=== PATIENT | female | born 1970 | race Caucasian/White ===

== ENCOUNTER → 2018-02-13 | Outpatient (CLI) | payer BC | LOC: M EKG 15:20 | DX: D64.9 Anemia, unspecified (principal); R53.83 Other fatigue; E03.9 Hypothyroidism, unspecified; R92.8 Other abnormal and inconclusive findings on diagnostic imaging of breast; N63.21 Unspecified lump in the left breast, upper outer quadrant | CPT/HCPCS: 71046 ==

== ENCOUNTER → 2018-12-09 | Outpatient (CLI) | payer BC ==
[2018-12-09 15:28] LABS: CHLAMYDIA DNA AMPLIFICATION NEGATIVE (NEGATIVE); GC DNA AMPLIFICATION NEGATIVE (NEGATIVE)
[2018-12-11 12:37] LABS: HIV 1&2 SCREEN CENTAUR NEGATIVE (NEGATIVE)
[2018-12-13 00:11] LABS: HSV IgM TYPES 1&2 <0.91 Ratio (0.00-0.90)
== END ==
LOC: M WUC 10:39
PROVIDERS: ATTEND Physician Assistant
DX: Z20.2 Contact with and (suspected) exposure to infections with a predominantly sexual mode of transmission (principal); R30.0 Dysuria

== ENCOUNTER → 2019-07-10 | Outpatient (CLI) | payer BC ==
[2019-07-10 08:38] LABS: HEMATOCRIT 41.4 % (36.0-47.0); MEAN CORPUSCULAR HEMOGLOBIN 30.2 pg (27.0-33.0); MEAN CORPUSCULAR HGB CONC 33.8 g/dl (32.0-36.5); MEAN CORPUSCULAR VOLUME 89.2 fl (80.0-96.0); PLATELET COUNT, AUTOMATED 308 10^3/uL (150-450); RED BLOOD COUNT 4.64 10^6/uL (4.00-5.40); WHITE BLOOD COUNT 9.1 10^3/uL (4.0-10.0)
[2019-07-10 09:16] LABS: ALBUMIN 3.8 GM/DL (3.2-5.2); BILIRUBIN,TOTAL 0.3 MG/DL (0.2-1.0); CALCIUM LEVEL 9.3 MG/DL (8.5-10.1); CHOLESTEROL RISK RATIO 3.557 (<5); CREATININE FOR GFR 1.07 MG/DL (0.55-1.30); GLOMERULAR FILTRATION RATE 57.8 (>51); PERCENT SATURATION 29.8 % (13.2-45.0); POTASSIUM SERUM 4.5 MEQ/L (3.5-5.1); THYROID STIMULATING HORMONE 2.92 uIU/ML (0.358-3.740)
[2019-07-10 09:19] LABS: TOTAL 25(OH) VITAMIN D 31.3 NG/ML (30.0-100.0)
[2019-07-10 11:23] LABS: HEMOGLOBIN A1c 5.2 %
== END ==
LOC: M LAB 07:48
PROVIDERS: ATTEND Family Medicine
DX: D64.9 Anemia, unspecified (principal)

== ENCOUNTER → 2021-04-25 | Outpatient (CLI) | payer BC ==
[2021-04-25 09:46] LABS: HEMATOCRIT 42.1 % (36.0-47.0); HEMOGLOBIN 13.6 g/dl (12.0-15.5); MEAN CORPUSCULAR HEMOGLOBIN 29.8 pg (27.0-33.0); MEAN CORPUSCULAR HGB CONC 32.3 g/dl (32.0-36.5); MEAN CORPUSCULAR VOLUME 92.3 fl (80.0-96.0); PLATELET COUNT, AUTOMATED 286 10^3/uL (150-450); RED BLOOD COUNT 4.56 10^6/uL (4.00-5.40); WHITE BLOOD COUNT 5.8 10^3/uL (4.0-10.0)
[2021-04-25 10:09] LABS: HEMOGLOBIN A1c 5.2 %
[2021-04-25 10:18] LABS: ALBUMIN 3.7 GM/DL (3.2-5.2); ALT/SGPT 28 U/L (12-78); BILIRUBIN,TOTAL 0.4 MG/DL (0.2-1.0); BLOOD UREA NITROGEN 14 MG/DL (7-18); CALCIUM LEVEL 8.9 MG/DL (8.5-10.1); CARBON DIOXIDE LEVEL 26 MEQ/L (21-32); CHLORIDE LEVEL 110 MEQ/L (98-107); CHOLESTEROL LEVEL 232 MG/DL (<200); CHOLESTEROL RISK RATIO 3.222 (<5); CREATININE FOR GFR 0.96 MG/DL (0.55-1.30); GLOMERULAR FILTRATION RATE > 60.0 (>51); GLUCOSE, FASTING 89 MG/DL (70-100); HDL CHOLESTEROL 72 MG/DL (>40); LDL CHOLESTEROL 146 MG/DL (<100); NON-HDL-C 160 MG/DL; POTASSIUM SERUM 4.4 MEQ/L (3.5-5.1); SODIUM LEVEL 135 MEQ/L (136-145); TRIGLYCERIDES LEVEL 71 MG/DL (<150)
[2021-04-27 09:43] LABS: LUTEINIZING HORMONE 5.1 mIU/mL; TOTAL 25(OH) VITAMIN D 62.4 NG/ML (30.0-100.0)
== END ==
LOC: M LAB 08:06
PROVIDERS: ATTEND Family Medicine
DX: D64.9 Anemia, unspecified (principal); R53.83 Other fatigue

== ENCOUNTER 2022-12-28 08:10 | Emergency (ER) | payer BC ==
[~2022-12-28] VITALS: Ht 172.7 cm; Wt 92.7 kg
[2022-12-28 08:36] LABS: BASO % 0.4 % (0.0-1.0); EOS # 0.1 10^3/uL (0.0-0.5); HEMOGLOBIN 13.7 g/dl (12.0-15.5); LYMPH # 2.1 10^3/uL (1.5-5.0); LYMPH % 29.4 % (24.0-44.0); MEAN CORPUSCULAR HGB CONC 32.6 g/dl (32.0-36.5); MEAN CORPUSCULAR VOLUME 91.9 fl (80.0-96.0); MONO # 0.8 10^3/uL (0.0-0.8); NEUTROPHILS % 56.9 % (36.0-66.0); PLATELET COUNT, AUTOMATED 274 10^3/uL (150-450); RED BLOOD COUNT 4.57 10^6/uL (4.00-5.40)
[2022-12-28 09:09] LABS: CALCIUM LEVEL 8.9 MG/DL (8.5-10.1); CREATININE FOR GFR 1.16 MG/DL (0.55-1.30); GLOMERULAR FILTRATION RATE 51.8 (>51); POTASSIUM SERUM 4.4 MMOL/L (3.5-5.1)
[2022-12-28] MEDS ORDERED: LIDOCAINE 5% (LIDODERM) PATCH TD ONE (09:25)
[2022-12-28] MEDS ORDERED: ASPE4PAD TOP (10:51)
[2022-12-28] MEDS ORDERED: METH-1165 PO (10:51)
[2022-12-28 11:03] VITALS: BP 123/82
== END 2022-12-28 11:11 | disposition home or self-care (01) ==
LOC: M ED 08:10
DX: M54.50 Low back pain, unspecified (principal); N83.201 Unspecified ovarian cyst, right side; Z90.5 Acquired absence of kidney

== ENCOUNTER → 2023-01-08 | Outpatient (CLI) | payer BC ==
[~2023-01-08] MED LIST: ASPE4PAD TOP; METH-1165 PO
[2023-01-08 09:29] LABS: HEMATOCRIT 42.7 % (36.0-47.0); HEMOGLOBIN 13.9 g/dl (12.0-15.5); MEAN CORPUSCULAR VOLUME 91.4 fl (80.0-96.0); RED BLOOD COUNT 4.67 10^6/uL (4.00-5.40); WHITE BLOOD COUNT 5.7 10^3/uL (4.0-10.0)
[2023-01-08 09:30] LABS: MEAN CORPUSCULAR HEMOGLOBIN 29.8 pg (27.0-33.0); MEAN CORPUSCULAR HGB CONC 32.6 g/dl (32.0-36.5); PLATELET COUNT, AUTOMATED 303 10^3/uL (150-450)
[2023-01-08 09:57] LABS: HEMOGLOBIN A1c 5.3 % (4.0-6.0)
[2023-01-08 09:58] LABS: ALBUMIN 3.7 G/DL (3.2-5.2); ALKALINE PHOSPHATASE 60 U/L (46-116); ALT/SGPT 24 U/L (7.0-40); AST/SGOT 26 U/L (<34); BILIRUBIN,TOTAL 0.6 MG/DL (0.3-1.2); BLOOD UREA NITROGEN 24 MG/DL (9-23); CALCIUM LEVEL 9.5 MG/DL (8.5-10.1); CARBON DIOXIDE LEVEL 27 MMOL/L (20-31); CHLORIDE LEVEL 107 MMOL/L (98-107); CHOLESTEROL LEVEL 200 MG/DL (<200); CHOLESTEROL RISK RATIO 2.73 (<5); CREATININE FOR GFR 1.02 MG/DL (0.55-1.30); GLOMERULAR FILTRATION RATE > 60.0 (>51); GLUCOSE, FASTING 92 MG/DL (60-100); HDL CHOLESTEROL 73.1 MG/DL (>40); LDL CHOLESTEROL 114.5 MG/DL (<100); NON-HDL-C 126.9 MG/DL; POTASSIUM SERUM 4.5 MMOL/L (3.5-5.1); SODIUM LEVEL 141 MMOL/L (136-145); TOTAL PROTEIN 6.9 G/DL (5.7-8.2); TRIGLYCERIDES LEVEL 62 MG/DL (<150)
[2023-01-08 09:59] LABS: ESTRADIOL < 19.0 PG/ML; THYROID STIMULATING HORMONE 2.629 uIU/ML (0.55-4.78); TOTAL 25(OH) VITAMIN D 40.4 NG/ML (20.0-100.0)
[2023-01-08 10:00] LABS: FOLLICLE STIMULATING HORMONE 103.4 mIU/ML; LUTEINIZING HORMONE 62.5 mIU/ML
== END ==
LOC: M RAD 08:24
PROVIDERS: ATTEND Family Medicine
DX: I10 Essential (primary) hypertension (principal); R53.83 Other fatigue; E03.9 Hypothyroidism, unspecified

== ENCOUNTER → 2023-09-15 | Outpatient (CLI) | payer BC ==
[2023-09-15 07:16] LABS: HEMATOCRIT 38.6 % (36.0-47.0); HEMOGLOBIN 12.9 g/dl (12.0-15.5); MEAN CORPUSCULAR HEMOGLOBIN 30.1 pg (27.0-33.0); MEAN CORPUSCULAR HGB CONC 33.4 g/dl (32.0-36.5); MEAN CORPUSCULAR VOLUME 90.2 fl (80.0-96.0); PLATELET COUNT, AUTOMATED 270 10^3/uL (150-450); RED BLOOD COUNT 4.28 10^6/uL (4.00-5.40); WHITE BLOOD COUNT 5.8 10^3/uL (4.0-10.0)
[2023-09-15 07:49] LABS: ALBUMIN 3.4 G/DL (3.2-5.2); ALKALINE PHOSPHATASE 58 U/L (46-116); ALT/SGPT 21 U/L (7.0-40); AST/SGOT 21 U/L (<34); BILIRUBIN,TOTAL 0.4 MG/DL (0.3-1.2); BLOOD UREA NITROGEN 22 MG/DL (9-23); CALCIUM LEVEL 9.1 MG/DL (8.5-10.1); CARBON DIOXIDE LEVEL 26 MMOL/L (20-31); CHLORIDE LEVEL 107 MMOL/L (98-107); CHOLESTEROL LEVEL 206 MG/DL (<200); CHOLESTEROL RISK RATIO 3.37 (<5); CREATININE FOR GFR 0.97 MG/DL (0.55-1.30); GLOMERULAR FILTRATION RATE > 60.0 (>51); GLUCOSE, FASTING 93 MG/DL (60-100); LDL CHOLESTEROL 128.2 MG/DL (<100); POTASSIUM SERUM 4.2 MMOL/L (3.5-5.1); SODIUM LEVEL 140 MMOL/L (136-145); THYROID STIMULATING HORMONE 2.367 uIU/ML (0.55-4.78); TOTAL 25(OH) VITAMIN D 38.1 NG/ML (20.0-100.0); TOTAL PROTEIN 6.5 G/DL (5.7-8.2); TRIGLYCERIDES LEVEL 84 MG/DL (<150)
[2023-09-15 09:34] LABS: HEMOGLOBIN A1c 5.2 % (4.0-6.0)
== END ==
LOC: M RAD 06:19
PROVIDERS: ATTEND Family Medicine
DX: I10 Essential (primary) hypertension (principal); R53.83 Other fatigue

== ENCOUNTER → 2023-12-01 | Outpatient (CLI) | payer BC ==
[2023-12-01 12:12] LABS: FREE T4 1.31 NG/DL (0.89-1.76); PROGESTERONE 0.21 NG/ML
[2023-12-01 12:13] LABS: ESTRADIOL < 19.0 PG/ML; LUTEINIZING HORMONE 42.4 mIU/ML
[2023-12-01 12:14] LABS: CORTISOL AM 6.7 UG/DL (4.3-22.4)
== END ==
LOC: M PLALAB 08:02
PROVIDERS: ATTEND Obstetrics & Gynecology
DX: N95.1 Menopausal and female climacteric states (principal)

== ENCOUNTER → 2024-01-18 | Outpatient (CLI) | payer BC ==
[2024-01-18 11:10] LABS: FOLLICLE STIMULATING HORMONE 53.1 mIU/ML
[2024-01-18 11:11] LABS: LUTEINIZING HORMONE 31.5 mIU/ML
[2024-01-18 11:12] LABS: ESTRADIOL 131.3 PG/ML
[2024-01-18 11:15] LABS: PROGESTERONE 3.89 NG/ML
[2024-01-19 12:18] LABS: TESTOSTERONE FREE (DIRECT) 2.8 pg/mL (0.0-4.2)
== END ==
LOC: M PLALAB 08:06
PROVIDERS: ATTEND Obstetrics & Gynecology
DX: E34.9 Endocrine disorder, unspecified (principal); N95.1 Menopausal and female climacteric states; P52.0 Intraventricular (nontraumatic) hemorrhage, grade 1, of newborn

== ENCOUNTER → 2024-03-01 | Outpatient (CLI) | payer BC | LOC: M PLAIMG 14:25 | PROVIDERS: ATTEND Family Medicine | DX: M25.522 Pain in left elbow (principal) ==

== ENCOUNTER → 2024-03-12 | Outpatient (CLI) | payer BC ==
[2024-03-12 13:42] LABS: ESTRADIOL 37.3 PG/ML
[2024-03-12 13:43] LABS: FOLLICLE STIMULATING HORMONE 61.1 mIU/ML; LUTEINIZING HORMONE 41.5 mIU/ML
[2024-03-12 13:44] LABS: PROGESTERONE 4.34 NG/ML
[2024-03-13 16:08] LABS: TESTOSTERONE FREE (DIRECT) 1.2 pg/mL (0.0-4.2)
== END ==
LOC: M PLALAB 08:43
PROVIDERS: ATTEND Obstetrics & Gynecology
DX: N95.1 Menopausal and female climacteric states (principal); E34.9 Endocrine disorder, unspecified; F52.0 Hypoactive sexual desire disorder

== ENCOUNTER → 2024-04-13 | Outpatient (CLI) | payer BC ==
[2024-04-13 12:42] LABS: FOLLICLE STIMULATING HORMONE 43.8 mIU/ML
[2024-04-13 12:43] LABS: ESTRADIOL 92.1 PG/ML; LUTEINIZING HORMONE 36.8 mIU/ML
[2024-04-13 12:44] LABS: PROGESTERONE 6.83 NG/ML; TOTAL 25(OH) VITAMIN D 49.4 NG/ML (20.0-100.0)
== END ==
LOC: M PLALAB 08:40
PROVIDERS: ATTEND Obstetrics & Gynecology
DX: R53.83 Other fatigue (principal); N95.1 Menopausal and female climacteric states; E34.9 Endocrine disorder, unspecified

== ENCOUNTER → 2024-04-25 | Outpatient (CLI) | payer BC | LOC: M PLAIMG 09:25 | PROVIDERS: ATTEND Physician Assistant | DX: M25.571 Pain in right ankle and joints of right foot (principal); M76.61 Achilles tendinitis, right leg ==

== ENCOUNTER → 2024-04-26 | Outpatient (CLI) | payer BC ==
[2024-04-26 15:14] LABS: FOLLICLE STIMULATING HORMONE 25.8 mIU/ML
[2024-04-26 15:15] LABS: LUTEINIZING HORMONE 16.6 mIU/ML
[2024-04-26 15:16] LABS: ESTRADIOL 52.2 PG/ML
== END ==
LOC: M PLALAB 10:19
PROVIDERS: ATTEND Obstetrics & Gynecology
DX: N95.1 Menopausal and female climacteric states (principal); E34.9 Endocrine disorder, unspecified; F52.0 Hypoactive sexual desire disorder

== ENCOUNTER → 2024-06-01 | Outpatient (CLI) | payer BC ==
[2024-06-01 10:03] LABS: HEMATOCRIT 42.2 % (36.0-47.0); HEMOGLOBIN 14.1 g/dl (12.0-15.5); MEAN CORPUSCULAR HEMOGLOBIN 30.6 pg (27.0-33.0); MEAN CORPUSCULAR HGB CONC 33.4 g/dl (32.0-36.5); MEAN CORPUSCULAR VOLUME 91.5 fl (80.0-96.0); PLATELET COUNT, AUTOMATED 255 10^3/uL (150-450); RED BLOOD COUNT 4.61 10^6/uL (4.00-5.40); WHITE BLOOD COUNT 5.9 10^3/uL (4.0-10.0)
[2024-06-01 10:13] LABS: THYROID STIMULATING HORMONE 2.299 uIU/ML (0.55-4.78); TOTAL 25(OH) VITAMIN D 51.1 NG/ML (20.0-100.0)
[2024-06-01 10:14] LABS: ALBUMIN 3.6 G/DL (3.2-5.2); ALKALINE PHOSPHATASE 62 U/L (46-116); ALT/SGPT 28 U/L (7.0-40); AST/SGOT 18 U/L (<34); BILIRUBIN,TOTAL 0.6 MG/DL (0.3-1.2); BLOOD UREA NITROGEN 14 MG/DL (9-23); CALCIUM LEVEL 9.1 MG/DL (8.5-10.1); CARBON DIOXIDE LEVEL 23 MMOL/L (20-31); CHLORIDE LEVEL 108 MMOL/L (98-107); CHOLESTEROL LEVEL 221 MG/DL (<200); CHOLESTEROL RISK RATIO 4.13 (<5); CREATININE FOR GFR 0.96 MG/DL (0.55-1.30); GLOMERULAR FILTRATION RATE > 60.0 (>51); GLUCOSE, FASTING 95 MG/DL (60-100); HDL CHOLESTEROL 53.5 MG/DL (>40); IRON (FE) 110 UG/DL (50-170); LDL CHOLESTEROL 146.9 MG/DL (<100); NON-HDL-C 167.5 MG/DL; PERCENT SATURATION 32.3 % (13.2-45.0); POTASSIUM SERUM 4.3 MMOL/L (3.5-5.1); SODIUM LEVEL 137 MMOL/L (136-145); TOTAL IRON BINDING CAPACITY 341 UG/DL (250-425); TOTAL PROTEIN 6.7 G/DL (5.7-8.2); TRIGLYCERIDES LEVEL 103 MG/DL (<150)
[2024-06-01 10:24] LABS: HEMOGLOBIN A1c 5.2 % (4.0-6.0)
== END ==
LOC: M PLALAB 07:50
PROVIDERS: ATTEND Family Medicine
DX: D64.9 Anemia, unspecified (principal); E03.9 Hypothyroidism, unspecified; R53.83 Other fatigue

== ENCOUNTER → 2024-08-08 | Outpatient (CLI) | payer BC ==
[2024-08-13 18:07] LABS: TESTOSTERONE FREE (DIRECT) 5.8 pg/mL (0.1-6.4)
== END ==
LOC: M PLALAB 12:44
PROVIDERS: ATTEND Anesthesiology Pain Medicine
DX: R53.83 Other fatigue (principal)

== ENCOUNTER → 2024-08-26 | Outpatient (REF) | payer BC ==
[~2024-08-26] MED LIST changes: +ALPR1TAB3 PO; +ESTR1CRE TOP; +PROG1CAP8 PO; +PROP20TA72 PO; +SEMA1PEN2 SC; +THERTAB52 PO; +Tumeric PO; +VITA-257 PO; +VITA100T59 PO
== END ==
LOC: M LAB REF 12:40
PROVIDERS: ATTEND Physician Assistant
DX: B34.9 Viral infection, unspecified (principal)

== ENCOUNTER → 2024-08-28 | Outpatient (REF) | payer BC ==
[2024-08-30 15:48] LABS: HPV APTIMA Not Detected (Not Detected)
== END ==
LOC: M SFHCWAGY 14:49
PROVIDERS: ATTEND Nurse Practitioner Family
DX: Z12.4 Encounter for screening for malignant neoplasm of cervix (principal); B96.89 Other specified bacterial agents as the cause of diseases classified elsewhere
CPT/HCPCS: 87624; G0123

== ENCOUNTER 2024-09-03 12:15 | Day surgery (SDC) | payer BC ==
[~2024-09-03] VITALS: Ht 172.7 cm; Wt 99.3 kg
[~2024-09-03 12:15] MED LIST changes: +NS 250 ML IV ONE
[2024-09-03] MEDS ORDERED: propofoL 200 MG/20 ML VIAL As Ordered ONE (14:25)
[2024-09-03 14:36] VITALS: TEMP 98.7
[2024-09-03 14:55] VITALS: BP 130/75; O2SAT 97
== END 2024-09-03 15:03 | disposition home or self-care (01) ==
LOC: M OPP 12:15
PROVIDERS: ATTEND Internal Medicine Gastroenterology
DX: Z12.11 Encounter for screening for malignant neoplasm of colon (principal); K64.0 First degree hemorrhoids; F41.9 Anxiety disorder, unspecified; Z91.040 Latex allergy status; Z79.899 Other long term (current) drug therapy

== ENCOUNTER → 2024-09-17 | Outpatient (CLI) | payer BC ==
[~2024-09-17] MED LIST changes: -NS 250 ML IV ONE
== END ==
LOC: M RAD 11:24
PROVIDERS: ATTEND Family Medicine
DX: Z01.818 Encounter for other preprocedural examination (principal); I10 Essential (primary) hypertension

== ENCOUNTER → 2024-09-18 | Outpatient (CLI) | payer BC ==
[2024-09-18 10:04] LABS: HEMATOCRIT 38.7 % (36.0-47.0); HEMOGLOBIN 13.1 g/dl (12.0-15.5); MEAN CORPUSCULAR HEMOGLOBIN 30.9 pg (27.0-33.0); MEAN CORPUSCULAR HGB CONC 33.9 g/dl (32.0-36.5); MEAN CORPUSCULAR VOLUME 91.3 fl (80.0-96.0); PLATELET COUNT, AUTOMATED 326 10^3/uL (150-450); RED BLOOD COUNT 4.24 10^6/uL (4.00-5.40); WHITE BLOOD COUNT 6.9 10^3/uL (4.0-10.0)
[2024-09-18 10:07] LABS: ALBUMIN 3.5 G/DL (3.2-5.2); ALKALINE PHOSPHATASE 47 U/L (35-104); ALT/SGPT 19 U/L (7.0-40); AST/SGOT 15 U/L (<34); BILIRUBIN,TOTAL 0.6 MG/DL (0.3-1.2); BLOOD UREA NITROGEN 19 MG/DL (9-23); CARBON DIOXIDE LEVEL 21 MMOL/L (20-31); CHLORIDE LEVEL 111 MMOL/L (98-107); CHOLESTEROL LEVEL 194 MG/DL (<200); CHOLESTEROL RISK RATIO 3.71 (<5); CREATININE FOR GFR 0.97 MG/DL (0.55-1.30); GLOMERULAR FILTRATION RATE > 60.0 (>51); GLUCOSE, FASTING 101 MG/DL (60-100); HDL CHOLESTEROL 52.2 MG/DL (>40); LDL CHOLESTEROL 122.6 MG/DL (<100); NON-HDL-C 141.8 MG/DL; POTASSIUM SERUM 4.3 MMOL/L (3.5-5.1); SODIUM LEVEL 139 MMOL/L (136-145); TRIGLYCERIDES LEVEL 96 MG/DL (<150)
[2024-09-18 10:18] LABS: INR 0.93; PROTHROMBIN TIME 12.8 SECONDS (12.5-14.5)
[2024-09-18 10:38] LABS: HEMOGLOBIN A1c 5.2 % (4.0-6.0)
== END ==
LOC: M PLALAB 07:58
PROVIDERS: ATTEND Family Medicine
DX: Z01.818 Encounter for other preprocedural examination (principal); I10 Essential (primary) hypertension